=== PATIENT | female | born 1995 | race Caucasian/White ===

== ENCOUNTER 2017-10-01 21:36 | Emergency (ER) | payer SELFPAY ==
--- NOTE | 2017-10-01 22:39 | RADIOLOGY REPORT (SQ) ---
EXAM DESCRIPTION: FOREARM LEFT COMPLETED DATE/TIME: 10/01/2017 10:23 pm REASON FOR STUDY: pain COMPARISON: None. NUMBER OF VIEWS: Two views. TECHNIQUE: Two radiographic images acquired of the left forearm, including elbow and wrist in at [address] one projection. LIMITATIONS: None. FINDINGS: MINERALIZATION: Normal. BONES: No acute fracture. No worrisome bone lesions. SOFT TISSUES: Linear radiopaque foreign bodies are seen in the anterior soft tissues of the proximal forearm. OTHER: No other significant finding. IMPRESSION: Foreign bodies having the appearance perhaps of needle fragments. TECHNICAL DOCUMENTATION: JOB ID: [id number] [employer]- All Rights Reserved Reading location - IP/workstation name: [email or web address]
[2017-10-01] MEDS ORDERED: NORMAL SALINE 1000 ML 1,000 ML IV ONE (23:27)
--- NOTE | 2017-10-01 23:30 | ER Document Report ---
ED General - General Chief Complaint: Arm Pain Stated Complaint: ARM PAIN Time Seen by Provider: 10/01/17 23:18 Notes: Patient is a 22-year-old female presents with complaint of IV drug abuse and a needle prick and often her arm on Friday. Patient says that she cannot fully extend her left arm. She has not seen a doctor about this. She has not had any signs of infection however she has noticed little swelling and firmness over the area. No vomiting. No fevers. No other complaints at this time. She has no chronic medical problems. TRAVEL OUTSIDE OF THE [place] IN LAST 30 DAYS: No - Related Data Allergies/Adverse Reactions: Penicillins Allergy (Verified 08/25/13 17:39) Past Medical History - Social History Smoking Status: Current Every Day Smoker Chew tobacco use (# tins/day): No Frequency of alcohol use: None Drug Abuse: Heroin Family History: None Patient has suicidal ideation: No Patient has homicidal ideation: No Renal/ Medical History: Denies: Hx Peritoneal Dialysis Past Surgical History: Reports: Hx Tonsillectomy Review of Systems - Review of Systems Notes: My Normal Review Basic REVIEW OF SYSTEMS: CONSTITUTIONAL : Denies fever, chills, or sweats. Denies recent illness. RESPIRATORY: Denies cough, cold, or chest congestion. Denies shortness of breath, difficulty breathing, or wheezing. GASTROINTESTINAL: Denies abdominal pain. Denies nausea, vomiting, or diarrhea. Denies constipation. Last BM: GENITOURINARY: Denies difficulty urinating, painful urination, burning, frequency, or blood in urine. MUSCULOSKELETAL: Pain in the left antecubital area. SKIN: Denies rash or skin lesions. NEUROLOGICAL: Denies altered mental status or loss of consciousness. Denies headache. Denies weakness or paralysis or loss of use of either side. Denies problems with gait or speech. Denies sensory or motor loss. ALL OTHER SYSTEMS REVIEWED AND NEGATIVE. Physical Exam - Vital signs Vitals: Temp Pulse Resp BP Pulse Ox 99.3 F 87 18 106/64 98 10/01/17 21:51 10/01/17 21:51 10/01/17 21:51 10/01/17 21:51 10/01/17 21:51 - Notes Notes: General Appearance: Well nourished, alert, cooperative, no acute distress, mild obvious discomfort. Vitals: reviewed, See vital signs table. Eyes: PERRL, EOMI, Conjuctiva clear Mouth: No decreasd moisture Lungs: No wheezing, No rales, No rhonci, No accessory muscle use, good air exchange bilaterally. Heart: Normal rate, Regular rythm, No murmur, no rub Extremities: Patient has some mild firmness over the proximal left forearm just below the left antecubital area. She does have track hoover and to the left antecubital area. I cannot palpate the actual needle beneath the skin. Patient cannot completely extend the left elbow. She can extend it to approximately 120. She cannot extend the full 180. She has a approximate 3cm localized area of faint redness by the antecubital area. Skin: warm, dry, appropriate color, no rash Neuro: speech clear, oriented x 3, normal affect, responds appropriately to questions. Course - Re-evaluation Re-evalutation: 10/02/17 03:51 CT scan does show that 1 of the needle fragments is in the vein and the cubital region. I did call Dr. Lama, orthopedist, who said that this should be cared for by the general surgery a vascular. I therefore called Dr. Chou, general surgeon, who reviewed the images and said that this is something to follow-up outpatient in the office. He says typically they do not go and after these needle fragments in the generally they do not cause any harm. I did review the patient's exam findings with Dr. Chou he agrees with plan for outpatient outpatient only. Patient does have just some mild erythema over the skin. I will place her on antibiotic. She has no evidence of abscess on exam or on CT scan. I encouraged her return to ER immediately if she has any spreading redness, increasing swelling, or she feels unwell. I talked to patient length about rehab and about the need to stop doing IV drugs. Informed her of the many different ways IV drugs can kill her and that continued IV drug use would eventually lead to . Patient shows understanding of this. She says that she has been coming in contact mobile crisis before and was once placed on the waiting list at [facility] but then apparently removed herself from the list. She agrees that she will call them again to try to get placed on a waiting list again. Patient said this is the only place and patiently that she can go because she does not have insurance. I informed her that she should place herself on a waiting list and continue to stand a waiting list so that she will eventually be able to inpatient rehab. Informed patient that she is welcome to return to ER anytime if she has any further questions or concerns. Dictation of this chart was performed using voice recognition software; therefore, there may be some unintended grammatical errors. - Vital Signs Vital signs: Temp Pulse Resp BP Pulse Ox 98.8 F 74 16 116/62 95 10/02/17 02:51 10/02/17 02:51 10/02/17 02:51 10/02/17 02:51 10/02/17 02:51 - Laboratory Result Diagrams: 10/02/17 01:04 10/02/17 01:04 Discharge - Discharge Clinical Impression: Foreign body (FB) in soft tissue Cellulitis Qualifiers: Site of cellulitis: extremity Site of cellulitis of extremity: upper extremity Laterality: right Qualified Code(s): L03.113 - Cellulitis of right upper limb Condition: Good Disposition: HOME, SELF-CARE Additional Instructions: Please take the antibiotics as prescribed. Please return to the ER immediately if you develop spreading redness, increasing swelling, fevers, or feel unwell. Please avoid IV drug use. Please contact mobile crisis to be placed back on a waiting list for rehab. I have prescribed Narcan. I hope you never use heroin or drugs again, but if you do you should always have the Narcan with you in case you accidentally overdose. Please use the Narcan immediately if you feel overly fatigued, tired, or have difficulty breathing after injecting heroin or any opiate. Please return to the ER immediately if you use the Narcan. You have 2 needle fragments in your arm and one of them is partially in the vein. I have discussed this with Dr. Chou, general surgeon, who wants you to call the surgical office for a close follow up appointment. Prescriptions: Doxycycline Hyclate 100 mg PO BID #14 capsule Fluconazole [Diflucan] 150 mg PO ONCE PRN #1 tablet PRN Reason: Naloxone HCl [Narcan] 4 mg NS COURTNEY #1 spray Sulfamethoxazole/Trimethoprim [Bactrim Ds Tablet] 1 each PO BID #14 tablet Referrals: ELKE CHOU MD [ACTIVE STAFF] - Follow up in 3-5 days (PLease call the surgical office to make a follow up appointment for next week)
[2017-10-02 01:15] LABS: ABSOLUTE BASOPHILS # (AUTO) 0.1 10^3/uL (0.0-0.2); ABSOLUTE EOSINOPHILS # (AUTO) 0.2 10^3/uL (0.0-0.6); ABSOLUTE LYMPHOCYTES (AUTO) 3.2 10^3/uL (0.5-4.7); ABSOLUTE MONOCYTES (AUTO) 0.9 10^3/uL (0.1-1.4); BASOPHILS % (AUTO) 0.7 % (0-2); EOSINOPHILS % (AUTO) 1.7 % (0-6); HEMATOCRIT 36.4 % (36.0-47.0); HEMOGLOBIN 12.5 g/dL (12.0-15.5); LYMPHOCYTES % (AUTO) 34.6 % (13-45); MEAN CORPUSCULAR HEMOGLOBIN 29.6 pg (27.0-33.4); MEAN CORPUSCULAR HGB CONC 34.3 g/dL (32.0-36.0); MEAN CORPUSCULAR VOLUME 86 fl (80-97); MONOCYTES % (AUTO) 9.3 % (3-13); PLATELET COUNT 161 10^3/uL (150-450); RED BLOOD COUNT 4.23 10^6/uL (3.72-5.28); RED CELL DISTRIBUTION WIDTH 13.6 % (11.5-14.0); SEGMENTED NEUTROPHILS % (AUTO) 53.7 % (42-78); TOTAL CELLS COUNTED % (AUTO) 100 %; WHITE BLOOD COUNT 9.2 10^3/uL (4.0-10.5)
[2017-10-02 01:32] LABS: ANION GAP 10 (5-19); BLOOD UREA NITROGEN 19 mg/dL (7-20); CALCIUM 9.2 mg/dL (8.4-10.2); CARBON DIOXIDE 25 mmol/L (22-30); CHLORIDE 106 mmol/L (98-107); GLUCOSE 103 mg/dL (75-110); POTASSIUM 3.6 mmol/L (3.6-5.0); SODIUM 141.4 mmol/L (137-145)
--- NOTE | 2017-10-02 01:55 | RADIOLOGY REPORT (SQ) ---
EXAM DESCRIPTION: CT UPPER EXTREMITY ANGIOGRAPHY WITH IV CONTRAST COMPLETED DATE/TME: 10/02/2017 00:00 CLINICAL HISTORY: 22 years, Female, broken needles left antecubital fossa COMPARISON: None. TECHNIQUE: Axial CT images of the left upper extremity obtained following the uncomplicated intravenous administration of 50 mL Isovue-[id number]. 3-D/MIP reformatted images available. All CT scanners at this facility use dose modulation, iterative reconstruction, and/or weight based dosing when appropriate to reduce radiation dose to as low as reasonably achievable (ALARA). [facility]: Dose Right [facility]: CareDose [facility]: Dose Right [facility]: Teradose 4D [facility]: CyberVision Text [facility]: 1593.53 mGycm FINDINGS: The left upper extreme in the arterial system is visualized from the level of the distal axillary artery to the brachial arteries to the level of the mid forearm. There is in-line flow from the axillary artery to the brachial artery and into the visualized radial, ulnar, and interosseous arteries without evidence of occlusion, stenosis, aneurysm, or dissection. In the soft tissues of the antecubital fossa there are 2 radiopaque foreign bodies. One appears to be in a dilated cephalic vein. The other is in the deep soft tissues of the arm near the level of the brachial vein. Mild edema in the soft tissues at these levels. No foreign bodies within the arterial system. IMPRESSION: 1. No acute abnormality identified in the visualized left upper extremity arterial system. 2. In the soft tissues of the antecubital fossa there are 2 near radiopaque foreign bodies. One appears to be in a dilated cephalic vein. The other is in the deep soft tissues of the arm near the level of the brachial vein. TECHNICAL DOCUMENTATION: Quality ID # [id number]: Final reports with documentation of one or more dose reduction techniques (e.g., Automated exposure control, adjustment of the mA and/or kV according to patient size, use of iterative reconstruction technique) 2010 [employer]- All Rights Reserved
[2017-10-02] MEDS ORDERED: DOXYCYCLINE HYCLATE 100 MG TABLET PO ONE (02:25)
[2017-10-02] MEDS ORDERED: SULFAMETHOXAZOLE/TRIMETHOPRIM 800-160 MG TABLET PO ONE (02:25)
[2017-10-02 02:52] VITALS: BP 116/62
== END 2017-10-02 02:52 | disposition home or self-care (01) ==
LOC: ER 21:36
DX: L03.113 Cellulitis of right upper limb (principal); M79.5 Residual foreign body in soft tissue; M79.602 Pain in left arm; F19.10 Other psychoactive substance abuse, uncomplicated; F17.200 Nicotine dependence, unspecified, uncomplicated
CPT/HCPCS: 99284; 96360; 36415; 85025; 80048; 73090; 73206; J7030